=== PATIENT | male | born 1970 ===

== ENCOUNTER 2019-10-20 07:04 | Emergency (ER) | payer SELFPAY | END 2019-10-20 07:45 | disposition home or self-care (01) | LOC: LB.ED 07:04 | DX: Z53.21 Procedure and treatment not carried out due to patient leaving prior to being seen by health care provider (principal) | CPT/HCPCS: 99281 ==

== ENCOUNTER 2021-04-22 17:14 | Emergency (ER) | payer BC ==
[2021-04-22 18:17] VITALS: BP 197/108; PULSE 63
== END 2021-04-22 19:00 | disposition home or self-care (01) ==
LOC: LB.ED 17:14
DX: I10 Essential (primary) hypertension (principal); Z79.899 Other long term (current) drug therapy
CPT/HCPCS: 36415; 71045; 80053; 84484; 85025; 93005; 99284-25

== ENCOUNTER 2022-08-23 07:35 | Emergency (ER) | payer BC, OTHER ==
[2022-08-23] MEDS: Sodium Chloride 0.9% 1,000 ML IV ONE ×2 (08:00→09:23)
[2022-08-23 08:19] LABS: BASOPHILS ABSOLUTE AUTO 0.06 K/uL (0.02-0.10); BASOPHILS PERCENT AUTO 1.1 % (0.0-0.5); EOSINOPHILS ABSOLUTE AUTO 0.12 K/uL (0.04-0.40); EOSINOPHILS PERCENT AUTO 2.3 % (1.0-5.0); HEMOGLOBIN 13.6 g/dL (13.0-18.0); LYMPHOCYTES ABSOLUTE AUTO 2.18 K/uL (1.50-4.00); LYMPHOCYTES PERCENT AUTO 41.2 % (20.0-40.0); MEAN CORPUSCULAR HEMOGLOBIN 32.5 pg (27.0-32.0); MEAN CORPUSCULAR VOLUME 96 fL (76-96); MEAN PLATELET VOLUME 9.9 fL (6.0-10.0); MONOCYTES ABSOLUTE AUTO 0.46 K/uL (0.20-0.80); MONOCYTES PERCENT AUTO 8.7 % (3.0-10.0); NEUTROPHILS ABSOLUTE AUTO 2.47 K/uL (2.00-7.50); NEUTROPHILS PERCENT AUTO 46.7 % (45.0-70.0); PLATELET COUNT,PLT 405 K/uL (150-400); RED BLOOD CELL COUNT 4.18 M/uL (4.50-6.50); RED CELL DISTRIBUTION WIDTH 11.8 % (11.0-16.0); WHITE BLOOD CELL COUNT,WBC 5.3 K/uL (4.0-11.0)
[2022-08-23 08:34] VITALS: BP 102/58; PULSE 80
[2022-08-23 08:41] LABS: ALANINE AMINOTRANSFERASE,ALT 47 U/L (12-78); ALBUMIN 4.1 g/dL (3.4-5.0); ALKALINE PHOSPHATASE 44 U/L (46-116); ANION GAP 16.5 mmol/L (5.0-15.0); ASPARTATE AMNIOTRANSFERASE,AST 30 U/L (15-37); BILIRUBIN TOTAL 0.4 mg/dL (0.0-1.0); BUN/CREATININE RATIO 20.7 (6-25); CALCIUM 9.8 mg/dL (8.5-10.1); CARBON DIOXIDE,CO2 24.8 mmol/L (21.0-32.0); CHLORIDE,CL 99 mmol/L (98-107); CREATININE 2.76 mg/dL (0.70-1.30); ESTIMATED GFR 27 mL/min (>60); GLUCOSE RANDOM 135 mg/dL (74-100); POTASSIUM,K 4.3 mmol/L (3.5-5.1); PROTEIN TOTAL,TP 8.2 g/dL (6.4-8.2); SODIUM,NA 136 mmol/L (136-145)
[2022-08-23 08:43] LABS: PROTHROMBIN TIME 10.5 sec (9.0-11.5)
[2022-08-23 08:44] LABS: BLOOD UREA NITROGEN,BUN 57 mg/dL (8-26)
[2022-08-23 10:01] LABS: APPEARANCE,URINE CLEAR (CLEAR); BILIRUBIN,URINE NEGATIVE (NEGATIVE); COLOR,URINE YELLOW; GLUCOSE,URINE NEGATIVE (NEGATIVE); KETONES,URINE NEGATIVE (NEGATIVE); LEUKOCYTE ESTERASE,URINE NEGATIVE (NEGATIVE); NITRITE,URINE NEGATIVE (NEGATIVE); OCCULT BLOOD,URINE NEGATIVE (NEGATIVE); PH,URINE 5.5 (5.0-8.0); PROTEIN,URINE NEGATIVE (NEGATIVE); UROBILINOGEN,URINE 0.2 E.U./dL (0.2-1.0)
[2022-08-23 10:09] LABS: EPITHELIAL CELLS,URINE RARE /HPF; RBC,URINE NOT SEEN /HPF; WBC,URINE NOT SEEN /HPF
[2022-08-23 11:41] LABS: BLOOD UREA NITROGEN,BUN 53 mg/dL (8-26); BUN/CREATININE RATIO 24.4 (6-25); CALCIUM 9.6 mg/dL (8.5-10.1); CARBON DIOXIDE,CO2 25.1 mmol/L (21.0-32.0); CHLORIDE,CL 104 mmol/L (98-107); CREATININE 2.17 mg/dL (0.70-1.30); ESTIMATED GFR 36 mL/min (>60); GLUCOSE RANDOM 122 mg/dL (74-100); POTASSIUM,K 5.1 mmol/L (3.5-5.1); SODIUM,NA 137 mmol/L (136-145)
== END 2022-08-23 12:37 ==
LOC: LB.ED 07:51
DX: I12.9 Hypertensive chronic kidney disease with stage 1 through stage 4 chronic kidney disease, or unspecified chronic kidney disease (principal); N18.9 Chronic kidney disease, unspecified; I10 Essential (primary) hypertension; Z88.8 Allergy status to other drugs, medicaments and biological substances; Z79.82 Long term (current) use of aspirin; Z79.899 Other long term (current) drug therapy
CPT/HCPCS: 36415; 71045; 80048; 80053; 81001; 84484; 85025; 85610; 85730; 93005; 96360; 96361; 99285-25; A0425; A0429; J7030

== ENCOUNTER 2023-01-13 07:31 | Day surgery (SDC) | payer OTHER ==
[~2023-01-13 07:31] MED LIST: Lactated Ringers 1,000 ML IV SCH; Ondansetron 4 MG/2 ML SDV IVPUSH PRN
[2023-01-13] MEDS: Lactated Ringers 1,000 ML IV SCH (08:08)
[2023-01-13] MEDS: ceFAZolin 1 GM in Sodium Chloride 0.9% 50 ML IV ONE (09:18)
[2023-01-13] MEDS: Bupivacaine 0.5%/EPINEPHrine 1:200,000 30 ML SDV INFILT ONE (09:45)
[2023-01-13] MEDS ORDERED: Midazolam 1 MG/ML 2 ML SDV ONE (10:30)
[2023-01-13] MEDS ORDERED: ePHEDrine 50 MG/ML SDV ONE (10:30)
[2023-01-13] MEDS ORDERED: Propofol 200 MG/20 ML SDV ONE (10:30)
[2023-01-13] MEDS: Morphine 2 MG/ML SYRINGE IVPUSH PRN (11:19)
[2023-01-13 11:23] VITALS: BP 113/78; PULSE 95
[2023-01-13] MEDS: Acetaminophen/HYDROcodone 325-5 MG Tab PO PRN (11:58)
== END 2023-01-13 13:30 | disposition home or self-care (01) ==
LOC: LB.SDS 07:31
PROVIDERS: ATTEND Surgery
DX: K42.9 Umbilical hernia without obstruction or gangrene (principal); I10 Essential (primary) hypertension; Z88.8 Allergy status to other drugs, medicaments and biological substances; Z79.899 Other long term (current) drug therapy; Z87.891 Personal history of nicotine dependence
CPT/HCPCS: A9270-GY; C1781; J0690; J2250; J2270; J2704; J3490; J7120